=== PATIENT | female | born 1955 | race Caucasian/White ===

== ENCOUNTER 2020-09-24 13:53 | Emergency (ER) | payer OTHER ==
[~2020-09-24] VITALS: Ht 170.2 cm; Wt 85.7 kg
[2020-09-24 15:26] LABS: ABSOLUTE NEUTROPHILS 5.1 thou/uL (1.4-8.2); BASOPHILS 0.7 % (0.0-2.0); HEMOGLOBIN 16.1 gm/dL (12.0-15.0); LYMPHOCYTES 16.2 % (24.0-44.0); MCH 29.7 pg (26.0-34.0); MCHC 34.2 g/dL (28.0-37.0); MONOCYTES 6.6 % (1.0-8.0); POLYS 75.5 % (36.0-66.0); RDW 13.8 % (10.5-14.5); WBC 6.7 thou/uL (4.0-11.0)
[2020-09-24 15:38] LABS: CALCIUM 8.8 mg/dL (8.5-10.1); CREATININE 0.7 mg/dL (0.6-1.0)
[2020-09-24 15:46] LABS: ALBUMIN 3.5 g/dL (3.4-5.0); TOTAL BILIRUBIN 0.4 mg/dL (0.2-1.0); TOTAL PROTEIN 6.9 g/dL (6.4-8.2)
[2020-09-24 16:20] LABS: PLATELET COUNT 113 thou/uL (150-400)
[2020-09-24] MEDS ORDERED: NORCO5 PO (18:10)
[2020-09-24] MEDS ORDERED: MEDROLDOSEPACK PO (18:10)
[2020-09-24 18:17] VITALS: BP 142/80
== END 2020-09-24 18:19 | disposition home or self-care (01) ==
LOC: ER 13:53
PROVIDERS: Emergency Medicine
DX: R53.1 Weakness (principal); M54.12 Radiculopathy, cervical region; I10 Essential (primary) hypertension; E78.5 Hyperlipidemia, unspecified; E11.9 Type 2 diabetes mellitus without complications